=== PATIENT | male | born 1990 | race African-American/Black ===

== ENCOUNTER 2025-01-18 12:13 | Emergency (ER) | payer OTHER ==
[~2025-01-18] VITALS: Ht 182.9 cm; Wt 109.0 kg
[2025-01-18 12:28] VITALS: TEMP 98.8
[2025-01-18 13:27] LABS: BASOPHILS % (AUTO) 0.6 % (0.0-2.0); EOSINOPHILS % (AUTO) 0.7 % (1.0-6.0); HEMATOCRIT 42.8 % (41-53); HEMOGLOBIN 14.3 g/dL (13.5-17.5); LYMPHOCYTES # (AUTO) 1.9 K/uL (1.0-4.8); LYMPHOCYTES % (AUTO) 40.5 % (22.0-44.0); MEAN CORPUSCULAR HEMOGLOBIN 29.9 pg (26.0-34.0); MEAN CORPUSCULAR HGB CONC 33.3 G/dL (31.0-37.0); MEAN CORPUSCULAR VOLUME 90 fL (80-100); MONOCYTES # (AUTO) 0.5 K/uL (0.1-1.0); MONOCYTES % (AUTO) 10.6 % (2.0-9.0); NEUTROPHILS # (AUTO) 2.3 K/uL (1.8-7.7); NEUTROPHILS % (AUTO) 47.6 % (40.0-70.0); PLATELET COUNT (AUTO) 178 K/uL (150-450); RED BLOOD CELL COUNT(AUTO) 4.77 MIL/uL (4.50-5.90); RED CELL DISTRIBUTION WIDTH 14.8 % (11.5-14.5); WHITE BLOOD COUNT (AUTO) 4.8 K/uL (4.5-11.0)
[2025-01-18 13:35] LABS: ANION GAP 6 mmol/L (8-16); CALCIUM, TOTAL 9.4 mg/dL (8.8-10.5); CARBON DIOXIDE 29 mmol/L (22-29); CHLORIDE 104 mmol/L (98-107); CREATININE 1.16 mg/dL (0.60-1.30); GLOMERULAR FILTR. RATE CALC > 60 mL/min (>60); GLUCOSE,RANDOM 84 mg/dL (70-110); POTASSIUM 4.2 mmol/L (3.5-5.1); SODIUM SERUM 139 mmol/L (136-145); UREA NITROGEN, BLOOD 9 mg/dL (7-18)
[2025-01-18] MEDS: SODIUM CHLORIDE 0.9% 1,000 ML IV ONE (14:51)
[2025-01-18] MEDS: TraMADol HCL 50 MG TABLET PO ONE (14:52)
[2025-01-18] MEDS: FLUORESCEIN SODIUM 1 MG STRIP OS ONE (14:53)
[2025-01-18] MEDS: ACYCLOVIR IV ONE (15:16)
[2025-01-18] MEDS: WATER IV ONE (15:16)
[2025-01-18] MEDS: DEXTROSE 5% IV ONE (15:16)
[2025-01-18 20:10] VITALS: BP 124/70; PULSE 69; RESP 18; O2SAT 98
== END 2025-01-18 22:03 | disposition admitted as inpatient to this hospital (09) ==
LOC: EMS 13:06
DX: B02.30 Zoster ocular disease, unspecified (principal); I11.0 Hypertensive heart disease with heart failure; I50.9 Heart failure, unspecified
CPT/HCPCS: 99285; 96365; 80048; 85025; 36415; J0133; J7060; J7030